=== PATIENT | female | born 1980 | race Caucasian/White ===

== ENCOUNTER → 2021-10-05 | Outpatient (CLI) | payer OTHER ==
--- NOTE | 2021-10-06 07:37 | MM ---
Reason for Exam: Screening (asymptomatic). Baseline mammogram. Patient History: Menarche at age 10. Patient has no children. Paternal grandmother had breast cancer at or over age 50. Last menstrual period: 07/07/2021 Risk Values: Saba 5 year model risk: 0.8%. NCI Lifetime model risk: 10.8%. Prior Study Comparison: Patient's first Mammogram. Tissue Density: The breast tissue is heterogeneously dense. This may lower the sensitivity of mammography. Findings: Analyzed By CAD. There is no suspicious group of microcalcifications, distortion, or suspicious mass in either breast. Overall Assessment: Negative, BI-RAD 1 Management: Screening Mammogram of both breasts in 1 year. A clinical breast exam by your physician is recommended on an annual basis and results should be correlated with mammographic findings. Electronically signed and approved by: Ronald Menard M.D.
== END | disposition home or self-care (01) ==
LOC: RADMAMWWP 09:28
PROVIDERS: ATTEND Obstetrics & Gynecology Obstetrics
DX: Z12.31 Encounter for screening mammogram for malignant neoplasm of breast (principal); Z80.3 Family history of malignant neoplasm of breast
CPT/HCPCS: 77063; 77067

== ENCOUNTER → 2022-10-10 | Outpatient (CLI) | payer OTHER ==
--- NOTE | 2022-10-11 10:45 | MM ---
Reason for Exam: Screening (asymptomatic). Last screening mammogram was performed 12 month(s) ago. Indicated Problems: Pain of the left side for 5 Month(s). Patient History: Menarche at age 10. Patient has no children. Paternal grandmother had breast cancer at or over age 50. Last menstrual period: 09/22/2022 Risk Values: Saba 5 year model risk: 0.9%. NCI Lifetime model risk: 10.7%. Prior Study Comparison: 10/05/2021 Bilateral MG 3D screening mammo w/cad, [facility]. Tissue Density: The breast tissue is heterogeneously dense. This may lower the sensitivity of mammography. Findings: Analyzed By CAD. There is no suspicious group of microcalcifications or new suspicious mass in either breast. Overall Assessment: Negative, BI-RAD 1 Management: Screening Mammogram of both breasts in 1 year. . Patient should continue monthly self-breast exams. A clinical breast exam by your physician is recommended on an annual basis. This exam should not preclude additional follow-up of suspicious palpable abnormalities. Note on Saba scores and lifetime risk: 1. A Saba score greater than 3% is considered moderate risk. If this is the case, consider specialist referral to assess eligibility for a risk reducing agent. 2. If overall lifetime risk for the development of breast cancer is 20% or higher, the patient may qualify for future screening with alternating mammogram and breast MRI. Electronically signed and approved by: Richard Abdalla M.D. Radiologis
== END | disposition home or self-care (01) ==
LOC: RADMAMWWP 08:27
PROVIDERS: ATTEND Obstetrics & Gynecology Obstetrics
DX: Z12.31 Encounter for screening mammogram for malignant neoplasm of breast (principal); Z80.3 Family history of malignant neoplasm of breast
CPT/HCPCS: 77063; 77067

== ENCOUNTER 2023-05-21 08:12 | Observation (INO) | payer OTHER ==
[~2023-05-21 08:12] MED LIST: HEPARIN SODIUM,PORCINE (1 ML) 2,500 UNIT in SODIUM CHLORIDE 0.9% 250 ML IRRIGATION PRN; HEPARIN SODIUM,PORCINE 10,000 UNIT in SODIUM CHLORIDE 0.9% 1,000 ML IRRIGATION PRN
--- NOTE | 2023-05-21 08:29 | ED ---
General Adult HPI - General Chief complaint: Chest Pain Stated complaint: chest pain Time Seen by Provider: 05/21/23 08:18 Source: patient, EMS, RN notes reviewed Mode of arrival: EMS Limitations: no limitations - History of Present Illness Initial comments: Patient is a pleasant 43-year-old female present to the emergency department with concerns with chest discomfort. Onset of symptoms was prior to arrival. Patient felt nauseated and did vomit. Patient then developed chest discomfort. Discomfort feels like heaviness or pressure and is somewhat severe. Patient has had 2 syncopal episodes. Patient does have some dyspnea. Nausea has resolved with medication by EMS. No diaphoresis. No cardiac history or history of similar symptoms previously - Related Data Home Medications Medication Instructions Recorded Confirmed Ibuprofen [Motrin Ib] 400 mg PO TID 01/17/18 01/17/18 Previous Rx's Medication Instructions Recorded Cyclobenzaprine [Flexeril] 1 - 2 tab PO TID #20 tablet 01/17/18 Ibuprofen [Motrin] 600 mg PO Q6HR PRN #40 day 01/17/18 predniSONE 50 mg PO DAILY #5 tab 01/17/18 Allergies Allergy/AdvReac Type Severity Reaction Status Date / Time No Known Allergies Allergy Verified 05/21/23 08:22 Review of Systems ROS Statement: Those systems with pertinent positive or pertinent negative responses have been documented in the HPI. ROS Other: All systems not noted in ROS Statement are negative. Constitutional: Denies: fever Eyes: Denies: eye pain ENT: Denies: ear pain Respiratory: Reports: as per HPI Cardiovascular: Reports: as per HPI, chest pain Endocrine: Denies: fatigue Gastrointestinal: Reports: nausea, vomiting. Denies: abdominal pain Genitourinary: Denies: dysuria Musculoskeletal: Denies: back pain Past Medical History Past Medical History: No Reported History History of Any Multi-Drug Resistant Organisms: None Reported Past Surgical History: Adenoidectomy Additional Past Surgical History / Comment(s): Ear surgery. Past Psychological History: No Psychological Hx Reported Smoking Status: Never smoker Past Alcohol Use History: None Reported Past Drug Use History: Marijuana General Exam Limitations: no limitations General appearance: alert, in no apparent distress Head exam: Present: normocephalic Eye exam: Present: normal appearance, PERRL, EOMI ENT exam: Present: other (Right lip abrasion) Neck exam: Present: normal inspection. Absent: tenderness Respiratory exam: Present: normal lung sounds bilaterally Cardiovascular Exam: Present: regular rate, normal rhythm, normal heart sounds Expanded Peripheral pulses: 2+: Radial (R), Radial (L), Posterior Tibialis (R), Posterior Tibialis (L) GI/Abdominal exam: Present: soft. Absent: tenderness Extremities exam: Present: normal inspection. Absent: pedal edema, calf tenderness Neurological exam: Present: alert, oriented X3, CN II-XII intact. Absent: motor sensory deficit Expanded Neurological exam: Present: protecting the airway Speech: Present: fluid speech Cranial nerves: EOM's Intact: Normal Motor strength exam: RUE: 5, LUE: 5, RLE: 5, LLE: 5 Eye Response: (4) open spontaneously Motor Response: (6) obeys commands Verbal Response: (5) oriented Psychiatric exam: Present: normal affect, normal mood Skin exam: Present: abrasion (Right lip) Course Vital Signs 05/21/23 05/21/23 05/21/23 08:15 08:47 09:10 Temperature 99.4 F Pulse Rate 68 71 77 Respiratory 18 17 17 Rate Blood Pressure 110/73 109/73 111/77 O2 Sat by Pulse 98 97 98 Oximetry EKG Findings - EKG Results: EKG: interpreted by ERMD, sinus rhythm, normal axis, normal QRS, normal ST/T Medical Decision Making - Medical Decision Making Was pt. sent in by a medical professional or institution (, PA, TRIM LINE WORKER, urgent care, hospital, or shelter...) When possible be specific @ -Patient was sent from work Did you speak to anyone other than the patient for history (EMS, parent, family, police, friend...)? What history was obtained from this source @ -No Did you review nursing and triage notes (agree or disagree)? Why? @ -I reviewed and agree with nursing and triage notes Were old charts reviewed (outside hosp., previous admission, EMS record, old EKG, old radiological studies, urgent care reports/EKG's, shelter records)? Report findings @ -No old charts were reviewed Differential Diagnosis (chest pain, altered mental status, abdominal pain women, abdominal pain men, vaginal bleeding, weakness, fever, dyspnea, syncope, headache, dizziness, GI bleed, back pain, seizure, CVA, palpatations, mental health, musculoskeletal)? @ -Differential Chest Pain: Stable Angina, Unstable Angina, STEMI, NSTEMI Aortic Dissection, Pneumothorax, Musculoskeletal, Esophageal Spasm GERD, Cholecystitis, Pancreatitis, Zoster, this is not meant to be an all-inclusive list. EKG interpreted by me (3pts min.). @ -As above X-rays interpreted by me (1pt min.). @ -None done CT interpreted by me (1pt min.). @ -CT chest does not reveal acute abnormality U/S interpreted by me (1pt. min.). @ -None done What testing was considered but not performed or refused? (CT, X-rays, U/S, labs)? Why? @ -None What meds were considered but not given or refused? Why? @ -None Did you discuss the management of the patient with other professionals (professionals i.e. , PA, TRIM LINE WORKER, lab, RT, psych nurse, social professionals, beet topper, teacher, tactical debriefer officer, returned case inspector)? Give summary @ -Case discussed with Dr. Oro who will admit covering hospital call Was smoking cessation discussed for >3mins.? @ -No Was critical care preformed (if so, how long)? @ -No Were there social determinants of health that impacted care today? How? (Homele ssness, low income, unemployed, alcoholism, drug addiction, transportation, low edu. Level, literacy, decrease access to med. care, fdc, rehab)? @ -No Was there de-escalation of care discussed even if they declined (Discuss DNR or withdrawal of care, Hospice)? DNR status @ -No What co-morbidities impacted this encounter? (DM, HTN, Smoking, COPD, CAD, Cancer, CVA, ARF, Chemo, Hep., AIDS, mental health diagnosis, sleep apnea, morbid obesity)? @ -None Was patient admitted / discharged? Hospital course, mention meds given and route, prescriptions, significant lab abnormalities, going to OR and other pertinent info. @ -Patient reevaluated and feeling much better. Patient and family updated on results and plan. Patient presents with chest pain and 2 syncopal episodes. Patient will be kept for admission and cardiology. Admission orders written Undiagnosed new problem with uncertain prognosis? @ -No Drug Therapy requiring intensive monitoring for toxicity (Heparin, Nitro, Insulin, Cardizem)? @ -No Were any procedures done? @ -No Diagnosis/symptom? @ -Chest pain, syncope Acute, or Chronic, or Acute on Chronic? @ -Acute, acute Uncomplicated (without systemic symptoms) or Complicated (systemic symptoms)? @ -Pain is complicated with syncope Side effects of treatment? @ -No Exacerbation, Progression, or Severe Exacerbation? @ -No Poses a threat to life or bodily function? How? (Chest pain, USA, NC, pneumonia, PE, COPD, DKA, ARF, appy, cholecystitis, CVA, Diverticulitis, Homicidal, Suicidal, threat to staff... and all critical care pts) @ -No - Lab Data Result diagrams: 05/21/23 08:31 05/21/23 08:31 Lab Results 05/21/23 05/21/23 05/21/23 Range/Units 08:31 08:31 08:31 WBC 4.2 (3.8-10.6) k/uL RBC 4.37 (3.80-5.40) m/uL Hgb 14.0 (11.4-16.0) gm/dL Hct 41.9 (34.0-46.0) % MCV 95.9 (80.0-100.0) fL MCH 31.9 (25.0-35.0) pg MCHC 33.3 (31.0-37.0) g/dL RDW 11.9 (11.5-15.5) % Plt Count 260 (150-450) k/uL MPV 7.4 Neutrophils % 55 % Lymphocytes % 29 % Monocytes % 10 % Eosinophils % 3 % Basophils % 1 % Neutrophils # 2.3 (1.3-7.7) k/uL Lymphocytes # 1.2 (1.0-4.8) k/uL Monocytes # 0.4 (0-1.0) k/uL Eosinophils # 0.1 (0-0.7) k/uL Basophils # 0.0 (0-0.2) k/uL PT 10.6 (10.0-12.5) sec INR 1.0 (<1.2) APTT 27.9 (22.0-30.0) sec Sodium 139 (137-145) mmol/L Potassium 3.7 (3.5-5.1) mmol/L Chloride 108 H (98-107) mmol/L Carbon Dioxide 20 L (22-30) mmol/L Anion Gap 11 mmol/L BUN 19 H (7-17) mg/dL Creatinine 0.69 (0.52-1.04) mg/dL Est GFR (CKD-EPI)AfAm >90 (>60 ml/min/1.73 sqM) Est GFR (CKD-EPI)NonAf >90 (>60 ml/min/1.73 sqM) Glucose 104 H (74-99) mg/dL Calcium 9.2 (8.4-10.2) mg/dL Magnesium 1.9 (1.6-2.3) mg/dL Total Bilirubin 0.6 (0.2-1.3) mg/dL AST 28 (14-36) U/L ALT 41 H (4-34) U/L Alkaline Phosphatase 61 (38-126) U/L Troponin I (0.000-0.034) ng/mL Total Protein 6.9 (6.3-8.2) g/dL Albumin 4.1 (3.5-5.0) g/dL 05/21/23 Range/Units 08:31 WBC (3.8-10.6) k/uL RBC (3.80-5.40) m/uL Hgb (11.4-16.0) gm/dL Hct (34.0-46.0) % MCV (80.0-100.0) fL MCH (25.0-35.0) pg MCHC (31.0-37.0) g/dL RDW (11.5-15.5) % Plt Count (150-450) k/uL MPV Neutrophils % % Lymphocytes % % Monocytes % % Eosinophils % % Basophils % % Neutrophils # (1.3-7.7) k/uL Lymphocytes # (1.0-4.8) k/uL Monocytes # (0-1.0) k/uL Eosinophils # (0-0.7) k/uL Basophils # (0-0.2) k/uL PT (10.0-12.5) sec INR (<1.2) APTT (22.0-30.0) sec Sodium (137-145) mmol/L Potassium (3.5-5.1) mmol/L Chloride (98-107) mmol/L Carbon Dioxide (22-30) mmol/L Anion Gap mmol/L BUN (7-17) mg/dL Creatinine (0.52-1.04) mg/dL Est GFR (CKD-EPI)AfAm (>60 ml/min/1.73 sqM) Est GFR (CKD-EPI)NonAf (>60 ml/min/1.73 sqM) Glucose (74-99) mg/dL Calcium (8.4-10.2) mg/dL Magnesium (1.6-2.3) mg/dL Total Bilirubin (0.2-1.3) mg/dL AST (14-36) U/L ALT (4-34) U/L Alkaline Phosphatase (38-126) U/L Troponin I <0.012 (0.000-0.034) ng/mL Total Protein (6.3-8.2) g/dL Albumin (3.5-5.0) g/dL Disposition Clinical Impression: Chest pain Disposition: ADMITTED IP TO THIS HOSP Is patient prescribed a controlled substance at d/c from ED?: No Referrals: None,Stated [Primary Care Provider] - 1-2 days Time of Disposition: 10:01
[2023-05-21] MEDS: ASPIRIN 81 MG PO STA (08:48)
[2023-05-21 08:49] LABS: Partial Thromboplastin Time 27.9 sec (22.0-30.0); Prothrombin Time 10.6 sec (10.0-12.5)
[2023-05-21] MEDS: NITROGLYCERIN SL TABS 0.4 MG TAB SUBLINGUAL STA ×3 (08:49→09:12)
[2023-05-21 08:53] LABS: Basophils % (A) 1 %; Eosinophils # (A) 0.1 k/uL (0-0.7); Eosinophils % (A) 3 %; HCT 41.9 % (34.0-46.0); Lymphocytes # (A) 1.2 k/uL (1.0-4.8); Lymphocytes % (A) 29 %; MCH 31.9 pg (25.0-35.0); MCHC 33.3 g/dL (31.0-37.0); MCV 95.9 fL (80.0-100.0); Mean Platelet Volume 7.4; Monocytes # (A) 0.4 k/uL (0-1.0); Monocytes % (A) 10 %; Neutrophils # (A) 2.3 k/uL (1.3-7.7); Neutrophils % (A) 55 %; Platelet Count 260 k/uL (150-450); RBC 4.37 m/uL (3.80-5.40); RDW 11.9 % (11.5-15.5); WBC 4.2 k/uL (3.8-10.6)
[2023-05-21 09:00] LABS: ALT 41 U/L (4-34); AST 28 U/L (14-36); African American GFR (CKD) >90 (>60 ml/min/1.73 sqM); Albumin 4.1 g/dL (3.5-5.0); Alkaline Phosphatase 61 U/L (38-126); Anion Gap 11 mmol/L; Blood Urea Nitrogen 19 mg/dL (7-17); Calcium 9.2 mg/dL (8.4-10.2); Carbon Dioxide 20 mmol/L (22-30); Chloride 108 mmol/L (98-107); Glucose 104 mg/dL (74-99); Magnesium 1.9 mg/dL (1.6-2.3); Non-African American GFR(CKD) >90 (>60 ml/min/1.73 sqM); Potassium 3.7 mmol/L (3.5-5.1); Sodium 139 mmol/L (137-145); Total Bilirubin 0.6 mg/dL (0.2-1.3); Total Protein 6.9 g/dL (6.3-8.2)
--- NOTE | 2023-05-21 09:34 | CT ---
CTA CHEST EXAMINATION TYPE: CT angio chest DATE OF EXAM: 05/21/2023 INDICATION: Chest pain, syncope, pt denies cardiac hx CT DLP: 486.6 mGycm, Automated exposure control for dose reduction was used. CONTRAST: Patient injected with 100 mL of Isovue 370. COMPARISON: None TECHNIQUE: CT of the chest is performed on a spiral scan at 2 mm thick sections. Study is performed with intravenous contrast timed for evaluation for pulmonary embolism. This will limit additional po rtions of the evaluation. 3-D MIP images reconstructed by the technologist are reviewed on the compu ter in the coronal and sagittal planes. FINDINGS: No persistent filling defects are evident to suggest an acute pulmonary embolism. No mediastinal or hilar adenopathy enlarged by CT criteria is evident. The ascending aorta diameter at the level of the main pulmonary artery is 2.9 cm. The main pulmonary artery diameter at the bifurcation is 2.5 cm. Lung windows are clear. Limited CT sections were through the upper abdomen. Upper abdomen appears unremarkable. IMPRESSION: 1. No acute pulmonary embolism. 2. No acute pulmonary process.
[2023-05-21] MEDS ORDERED: NITROGLYCERIN SL TABS 0.4 MG TAB SUBLINGUAL PRN ×2 (10:01→11:28)
[2023-05-21] MEDS ORDERED: ALPRAZolam 0.25 MG TAB PO PRN (11:28)
[2023-05-21] MEDS ORDERED: ALPRAZolam 0.5 MG TAB PO PRN (11:28)
[2023-05-21] MEDS ORDERED: HEPARIN SODIUM 1,000 UN/ML (10ML VL) IV PRN (11:30)
[2023-05-21] MEDS: HEPARIN SODIUM 1,000 UN/ML (10ML VL) IV ONE (11:54)
[2023-05-21] MEDS: HEPARIN SOD,PORK IN 0.45% NACL 25,000 UNIT in 0.45% NACL 1 250ML.BAG IV SCH (11:55)
[2023-05-21] MEDS: SODIUM CHLORIDE 0.9% 1,000 ML IV SCH (11:56)
[2023-05-21] MEDS: NITROGLYCERIN OINT 1 INCH/GM PACKET TOPICAL SCH (11:56)
[2023-05-21] MEDS: ATORVASTATIN 80 MG TAB PO STA (11:56)
[2023-05-21] MEDS: ASPIRIN 325 MG TAB PO STA (12:00)
[2023-05-21 12:34] LABS: Glucose,Whole Blood 149 mg/dL (70-110)
[2023-05-21 12:35] LABS: Prothrombin Time 10.6 sec (10.0-12.5)
[2023-05-21 12:47] LABS: Basophils % (A) 0 %; Eosinophils % (A) 0 %; HGB 14.3 gm/dL (11.4-16.0); Lymphocytes % (A) 16 %; MCH 32.2 pg (25.0-35.0); MCHC 33.2 g/dL (31.0-37.0); Mean Platelet Volume 7.3; Monocytes # (A) 0.3 k/uL (0-1.0); Monocytes % (A) 5 %; Neutrophils # (A) 4.9 k/uL (1.3-7.7); Neutrophils % (A) 77 %; Platelet Count 277 k/uL (150-450); RBC 4.43 m/uL (3.80-5.40); RDW 11.9 % (11.5-15.5); WBC 6.4 k/uL (3.8-10.6)
--- NOTE | 2023-05-21 13:10 | P.HPIM ---
History of Present Illness H&P Date: 05/21/23 43-year-old female with no significant PMH presents to the ED. She was at work earlier and started to become nauseated and diaphoretic. She had one episode of NBNB vomiting. Shortly after she felt lightheaded and had a syncopal episode. Once regained consciousness she had another syncopal episode. After regaining consciousness for a second she started experiencing midsternal chest pain, described as less than sitting on her chest with radiation to the left arm along with numbness and tingling. She is a previous smoker. She reports her sister had a stent placed at age 53. In the ED, she underwent extensive evaluation. BP 110/73, HR 68, RR 18, T 99.4F, 98% on RA. CBC unremarkable. Coagulation panel unremarkable. CMP showed chloride 108, bicarb 20, BUN 19, glucose 104, ALT 41. Magnesium 1.9. Troponin less than 0.0123. EKG showed sinus rhythm with nonspecific T-wave changes. CTA chest negative for PE. Cardiology consulted, started on heparin drip with plans of cardiac catheterization. General: non toxic, no distress, appears at stated age Derm: warm, dry Head: atraumatic, normocephalic, symmetric Eyes: EOMI, no lid lag, anicteric sclera Mouth: no lip lesion, mucus membranes moist Cardiovascular: S1S2 reg, no murmur Lungs: CTA bilateral, no rhonchi, no rales , no accessory muscle use Ext: no gross muscle atrophy, no edema, no contractures Neuro: no focal neuro deficits Psych: Alert, oriented, appropriate affect Based on my assessment of this patient, this patient meets a high complexity level of care. Patient has an acute diagnosis of unstable angina that poses a threat to life or bodily function. Unstable angina: Troponins negative. Symptoms concerning for ACS. Plans for cardiac cath. Obtain Echo. Heparin drip at 10.8 units/kg/hr. ASA 81 mg PO QD. Telemetry monitoring. Cardiology on board. Previous smoker Family history of CAD Obesity: Structured weight loss program. CODE STATUS: FULL CODE DVT Prophylaxis: Heparin drip GI Prophylaxis: Designated medical POA if patient is not able to make medical decisions for themselves: . I have reviewed the following customer care consultant notes: ED note. I have reviewed the results of the following tests: As above. I have ordered the following tests: As above. I have discussed the care of this patient with the following independent historian: . I have independently interpreted the following test below: EKG. I have discussed the management of this patient with the following physician: ED physician. Past Medical History Past Medical History: No Reported History History of Any Multi-Drug Resistant Organisms: None Reported Past Surgical History: Adenoidectomy Additional Past Surgical History / Comment(s): Ear surgery. Past Psychological History: No Psychological Hx Reported Smoking Status: Never smoker Past Alcohol Use History: None Reported Past Drug Use History: Marijuana Medications and Allergies Home Medications Medication Instructions Recorded Confirmed Type Azithromycin [Zithromax Z Pack] See Taper PO DAILY 05/21/23 05/21/23 History Allergies Allergy/AdvReac Type Severity Reaction Status Date / Time No Known Allergies Allergy Verified 05/21/23 10:38 Physical Exam Vitals: Vital Signs Temp Pulse Resp BP Pulse Ox 05/21/23 12:00 98.2 F 81 18 104/72 98 05/21/23 10:28 65 17 107/73 97 05/21/23 09:10 77 17 111/77 98 05/21/23 08:47 71 17 109/73 97 05/21/23 08:15 99.4 F 68 18 110/73 98 Intake and Output 05/20/23 05/21/23 05/21/23 22:59 06:59 14:59 Other: Weight 92.533 kg Results CBC & Chem 7: 05/21/23 11:54 05/21/23 08:31 Labs: Abnormal Lab Results - Last 24 Hours (Table) 05/21/23 05/21/23 Range/Units 08:31 12:32 Chloride 108 H (98-107) mmol/L Carbon Dioxide 20 L (22-30) mmol/L BUN 19 H (7-17) mg/dL Glucose 104 H (74-99) mg/dL POC Glucose (mg/dL) 149 H (70-110) mg/dL ALT 41 H (4-34) U/L
--- NOTE | 2023-05-21 14:32 | P.CRDCN ---
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 Patient states that she developed vomiting at work and then was feeling lightheaded and nauseated. She states she ended up falling down twice could not catch her breath and developed chest pain that was severe with pain going into her left arm. She did not feel right in general. She was given 2 nitroglycerin and she had improvement of the pain within a couple minutes. Patient denies having any fever or chills. No cough. She does have pain with deep breathing. She describes it as someone sitting on her chest. All she states she has tightness in her chest now. Symptoms started this morning while at work. Patient quit smoking tobacco in 2016. She does use marijuana. No alcohol use. She has a strong family history of coronary artery disease and diabetes. Chest pain is a #5/10. Discussed option of cardiac catheterization and patient is agreeable to move forward with this today. EKG sinus rhythm with nonspecific ST changes. CTA of the chest revealed no acute pulmonary embolism. No acute pulmonary process. CBC, INR normal. Sodium 139, potassium 3.7, chloride 108, CO2 20, BUN 19 creatinine 0.69. Blood sugar 104. Troponins negative x 3. ALT 41 otherwise liver function tests are normal. Magnesium 1.9. Home cardiac medications: None Review Of Systems: At the time of my exam: CONSTITUTIONAL: Denies fever or chills. HEENT: Denies blurred vision, vision changes, or eye pain. Denies hemoptysis CARDIOVASCULAR: Reports chest pain. Denies orthopnea. Denies PND. Denies palpitations RESPIRATORY: Denies shortness of breath. GASTROINTESTINAL: Denies abdominal pain. Denies nausea or vomiting. HEMATOLOGIC: Denies bleeding disorders. GENITOURINARY: Denies any blood in urine. SKIN: Denies pruitis. Denies rash. Physical examination: Gen: This is a 43-year-old female in no acute distress. VS: reviewed blood pressure 107/73, heart rate 65, pulse ox 97% on room air. HEENT: Head is atraumatic, normocephalic. Pupils equal, round. Sclerae is anicteric. NECK: Supple. No JVD. LUNGS: Clear to auscultation. No wheezes or rhonchi. No intercostal retractions. HEART: Regular rate and rhythm. No murmur. ABDOMEN: Soft No tenderness. EXTREMITIES: No pedal edema. No calf tenderness. NEUROLOGICAL: Patient is awake, alert and oriented x3. Assessment: Chest pain, ruled out acute coronary syndrome Plan: Patient has been started on aspirin 81 mg daily Start patient on heparin drip and nitro ointment 1 inch every 6 hours Schedule patient for cardiac catheterization today with Dr. Wakefield Obtain 2-D echocardiogram and Doppler study to assess cardiac structure and function Further recommendations to follow based upon clinical course Thank you kindly for this consultation. Nurse practitioner note has been reviewed, I agree with documented findings and plan of care. Patient was seen and examined. Past Medical History Past Medical History: No Reported History History of Any Multi-Drug Resistant Organisms: None Reported Past Surgical History: Adenoidectomy Additional Past Surgical History / Comment(s): Ear surgery. Past Psychological History: No Psychological Hx Reported Smoking Status: Never smoker Past Alcohol Use History: None Reported Past Drug Use History: Marijuana Medications and Allergies Home Medications Medication Instructions Recorded Confirmed Type Azithromycin [Zithromax Z Pack] See Taper PO DAILY 05/21/23 05/21/23 History Allergies Allergy/AdvReac Type Severity Reaction Status Date / Time No Known Allergies Allergy Verified 05/21/23 10:38 Physical Exam Vitals: Vital Signs Temp Pulse Resp BP Pulse Ox 05/21/23 10:28 65 17 107/73 97 05/21/23 09:10 77 17 111/77 98 05/21/23 08:47 71 17 109/73 97 05/21/23 08:15 99.4 F 68 18 110/73 98 Intake and Output 05/20/23 05/21/23 05/21/23 22:59 06:59 14:59 Other: Weight 92.533 kg Results 05/21/23 11:54 05/21/23 08:31 Cardiac Enzymes 05/21/23 05/21/23 05/21/23 Range/Units 08:31 08:31 10:15 AST 28 (14-36) U/L Troponin I <0.012 <0.012 (0.000-0.034) ng/mL Coagulation 05/21/23 Range/Units 08:31 PT 10.6 (10.0-12.5) sec APTT 27.9 (22.0-30.0) sec CBC 05/21/23 Range/Units 08:31 WBC 4.2 (3.8-10.6) k/uL RBC 4.37 (3.80-5.40) m/uL Hgb 14.0 (11.4-16.0) gm/dL Hct 41.9 (34.0-46.0) % Plt Count 260 (150-450) k/uL Comprehensive Metabolic Panel 05/21/23 Range/Units 08:31 Sodium 139 (137-145) mmol/L Potassium 3.7 (3.5-5.1) mmol/L Chloride 108 H (98-107) mmol/L Carbon Dioxide 20 L (22-30) mmol/L BUN 19 H (7-17) mg/dL Creatinine 0.69 (0.52-1.04) mg/dL Glucose 104 H (74-99) mg/dL Calcium 9.2 (8.4-10.2) mg/dL AST 28 (14-36) U/L ALT 41 H (4-34) U/L Alkaline Phosphatase 61 (38-126) U/L Total Protein 6.9 (6.3-8.2) g/dL Albumin 4.1 (3.5-5.0) g/dL Current Medications Generic Name Dose Route Start Last Admin Trade Name Freq PRN Reason Stop Dose Admin Aspirin 325 mg 05/22/23 09:00 Aspirin 325 Mg Tab PO DAILY MILY Nitroglycerin 0.4 mg 05/21/23 10:01 Nitroglycerin Sl Tabs 0.4 Mg Tab SUBLINGUAL Q5M PRN Chest Pain Nitroglycerin 1 inch 05/21/23 12:00 Nitroglycerin Oint 1 Inch/Gm Packet TOPICAL Q6HR MILY Intake and Output 05/20/23 05/21/23 05/21/23 22:59 06:59 14:59 Other: Weight 92.533 kg Patient Weight 05/22/23 06:59 Weight 92.533 kg 05/21/23 08:31 05/21/23 08:31
[2023-05-21] MEDS: SODIUM CHLORIDE 0.9% 1,000 ML IV ONE (15:23)
[2023-05-21] MEDS ORDERED: VERAPAMIL 2.5 MG/ML 2 ML AMP ONE (15:23)
[2023-05-21] MEDS ORDERED: LIDOCAINE 1% INJ 10MG/ML (20 ML MDV) ONE (15:23)
[2023-05-21] MEDS ORDERED: fentaNYL (PF) 50 MCG/ML 2 ML AMP ONE (15:35)
[2023-05-21] MEDS: fentaNYL (PF) 50 MCG/1 ML VIAL IVP ONE (15:44)
[2023-05-21] MEDS: MIDAZOLAM 2 MG/2 ML VIAL IVP ONE (15:44)
[2023-05-21] MEDS: LIDOCAINE 1% INJ 10MG/ML (20 ML MDV) SQ ONE (15:45)
[2023-05-21] MEDS: VERAPAMIL SYRINGE (5 MG/10 ML) INTRAARTER ONE (15:46)
[2023-05-21] MEDS ORDERED: HEPARIN SODIUM 1,000 UN/ML (10ML VL) ONE (15:49)
[2023-05-21] MEDS: HEPARIN SODIUM 1,000 UN/ML (10ML VL) IVP ONE (15:51)
[2023-05-21] MEDS: IOPAMIDOL-370 100ML BTL INJ ONE (15:59)
--- NOTE | 2023-05-21 16:04 | CA ---
Transthoracic Echo Report Name: Julia Sheth Age: 43 Gender: F : 1980 Exam Date: 05/21/2023 14:32 Exam Location: [facility] Ht (in): 63 Wt (lb): 204 Ordering Physician: Ernestine Quispe MD Attending/Referring Phys: Grocery Clerk Tasia Dixon RCS Procedure CPT: Indications: CP Cardiac Hx: Technical Quality: Technically difficult study Contrast 1: Definity Total Dose (mL): 2 Contrast 2: Total Dose (mL): MEASUREMENTS (Male / Female) Normal Values 2D ECHO LV Diastolic Diameter PLAX 5.8 cm 4.2 - 5.9 / 3.9 - 5.3 cm LV Systolic Diameter PLAX 4.0 cm IVS Diastolic Thickness 0.5 cm 0.6 - 1.0 / 0.6 - 0.9 cm LVPW Diastolic Thickness 0.6 cm 0.6 - 1.0 / 0.6 - 0.9 cm LV Relative Wall Thickness 0.2 RV Internal Dim ED PLAX 2.5 cm LVOT Diameter 2.3 cm LV Diastolic Volume MOD BP 105.6 cm??? 67 - 155 / 56 - 104 cm??? LV Systolic Volume MOD BP 35.8 cm??? 22 - 58 / 19 - 49 cm??? LV Ejection Fraction MOD BP 66.1 % >= 55 % LV Cardiac Index MOD BP 2224.8 cm???/min???m??? LV Diastolic Volume MOD 4C 111.7 cm??? LV Systolic Volume MOD 4C 38.5 cm??? LV Ejection Fraction MOD 4C 65.6 % LV Cardiac Index MOD 4C 2332.8 cm???/min???m??? LV Diastolic Length 4C 7.6 cm LV Systolic Length 4C 6.1 cm LV Diastolic Volume MOD 2C 95.2 cm??? LV Systolic Volume MOD 2C 33.2 cm??? LV Ejection Fraction MOD 2C 65.2 % LV Cardiac Index MOD 2C 1978.2 cm???/min???m??? LV Diastolic Length 2C 7.2 cm LV Systolic Length 2C 6.0 cm LA Volume 35.8 cm??? 18 - 58 / 22 - 52 cm??? LA Volume Index 17.3 cm???/m??? 16 - 28 cm???/m??? Ascending Aorta Diameter 3.1 cm DOPPLER AV Peak Velocity 141.6 cm/s AV Peak Gradient 8.0 mmHg AV Mean Velocity 96.8 cm/s AV Mean Gradient 4.3 mmHg AV Velocity Time Integral 25.9 cm LVOT Peak Velocity 108.2 cm/s LVOT Peak Gradient 4.7 mmHg LVOT Velocity Time Integral 21.4 cm LVOT Stroke Volume 85.3 cm??? LVOT Stroke Volume Index 43.7 ml/m??? LVOT Cardiac Index 2717.7 cm???/min???m??? AV Area Cont Eq vti 3.3 cm??? AV Area Cont Eq pk 3.0 cm??? Mitral E Point Velocity 73.4 cm/s Mitral A Point Velocity 60.5 cm/s Mitral E to A Ratio 1.2 MV Deceleration Time 181.4 ms MV E' Velocity 7.0 cm/s Mitral E to MV E' Ratio 10.5 TR Peak Velocity 216.4 cm/s TR Peak Gradient 18.7 mmHg Right Atrial Pressure 5.0 mmHg Pulmonary Artery Systolic Pressu 23.7 mmHg Right Ventricular Systolic Press 23.7 mmHg PV Peak Velocity 94.9 cm/s PV Peak Gradient 3.6 mmHg FINDINGS Left Ventricle Left ventricular ejection fraction is estimated at 60-65 %. Moderately increased left ventricular diastolic diameter. Mildly increased left ventricular diastolic volume. Left ventricular wall thickness normal. No obvious regional wall motion abnormalities. Right Ventricle Normal right ventricular size and function. Right ventricular systolic pressure within normal limits. Right Atrium Normal right atrial size. Left Atrium Normal left atrial size. Mitral Valve Structurally normal mitral valve. No evidence for mitral valve prolapse. No mitral stenosis. No mitral regurgitation. Aortic Valve Trileaflet aortic valve. No aortic stenosis. No aortic regurgitation. Tricuspid Valve Structurally normal tricuspid valve. No tricuspid stenosis. Trace tricuspid regurgitation. Pulmonic Valve Structurally normal pulmonic valve. No pulmonic stenosis. No pulmonic regurgitation. Pericardium No pericardial effusion. Aorta Normal size aortic root and proximal ascending aorta. CONCLUSIONS Left ventricular ejection fraction 60-65% Normal left ventricular thickness No mitral regurgitation Trace tricuspid regurgitation No pericardial effusion Previewed by: Dr. Yoel Wakefield DO (Electronically Signed) Final Date: 21 May 2023 16:04
--- NOTE | 2023-05-21 16:08 | P.CARDCATH ---
Description of Procedure: PROCEDURES PERFORMED: Left heart catheterization, bilateral coronary angiography, ultrasound guided arterial access INDICATION: chest pain concerning for unstable angina CONSENT:I have discussed the risks, benefits and alternative therapies for the above-mentioned procedure and for both sedation/analgesia as well as necessary blood product administration, if indicated, as they pertain to this patient. The patient has indicated understanding and acceptance of the risks and procedures discussed. PROCEDURE: After the risks, benefits and alternatives of the above mentioned procedure explained in detail with the patient, informed consent was obtained. Patient was taken to the catheterization lab and prepped and draped in usual fashion. Ultrasound guidance was used to assess for arterial access. 1% lidocaine was used to anesthetize the right radial artery. A 6-Palauan sheath was placed in the right radial artery using modified Seldinger technique and ultrasound guidance. Left coronary angiography was performed with a 5-Palauan JL 3.5 catheter and right coronary angiography was performed with a 5-Palauan FR5 catheter in various views. A 5-Palauan FR5 catheter was inserted into the left ventricle and pressure measurements were obtained. The right radial sheath was removed and a TR band was placed with hemostasis achieved. The patient tolerated the procedure well. Patient was transported back to the post catheterization holding area in stable condition. Conscious Sedation: Patient was monitored under the direct supervision of myself for conscious sedation using Versed and fentanyl for a total duration of 10 minutes HEMODYNAMICS: aorta: 138/72 LV: 130/1, LVEDP 3 SELECTIVE CORONARY ARTERIOGRAPHY: LEFT MAIN: The left main is a large caliber vessel which bifurcates into the LAD and circumflex. There is no significant stenosis. LEFT ANTERIOR DESCENDING CORONARY ARTERY: LAD is a large caliber vessel which wraps around to the apex. There is no significant stenosis. LEFT CIRCUMFLEX CORONARY ARTERY: Left circumflex is a moderate caliber vessel without significant stenosis. RIGHT CORONARY ARTERY: The right coronary artery is a large caliber vessel which gives off a PDA and PLV branch and is the dominant vessel. There is no significant stenosis. FINAL IMPRESSION: 1. Normal coronary arteries as described above. 2. Low normal left sided filling pressures PLAN: 1. Aggressive risk factor modification per most recent ACC/AHA guidelines. 2. Follow-up in the office in 1-2 weeks.
[2023-05-21] MEDS: ACETAMINOPHEN TAB 325 MG TAB PO PRN (20:54)
[2023-05-22] MEDS ORDERED: HYDROcodone/APAP 5-325MG 1 EACH TAB PO PRN (05:51)
--- NOTE | 2023-05-22 05:54 | P.DS ---
Providers Date of admission: 05/21/23 10:02 Expected date of discharge: 05/22/23 Attending physician: Ernestine Quispe MD Consults: 05/21/23 10:02 Consult Physician Urgent Consulting Provider: Brock Pitts Consult Reason/Comments: cp w syncope Do you want consulting provider notified?: Yes Primary care physician: Stated None Hospital Course: 43-year-old female with no significant PMH presents to the ED. She was at work earlier and started to become nauseated and diaphoretic. She had one episode of NBNB vomiting. Shortly after she felt lightheaded and had a syncopal episode. Once regained consciousness she had another syncopal episode. After regaining consciousness for a second she started experiencing midsternal chest pain, described as less than sitting on her chest with radiation to the left arm along with numbness and tingling. She is a previous smoker. She reports her sister had a stent placed at age 53. In the ED, she underwent extensive evaluation. BP 110/73, HR 68, RR 18, T 99.4F, 98% on RA. CBC unremarkable. Coagulation panel unremarkable. CMP showed chloride 108, bicarb 20, BUN 19, glucose 104, ALT 41. Magnesium 1.9. Troponin less than 0.0123. EKG showed sinus rhythm with nonspecific T-wave changes. CTA chest negative for PE. Cardiology consulted, started on heparin drip with plans of cardiac catheterization. Cardiac cath negative for significant CAD. Echo EF 60-65% trace TR. 4/3 Patient was seen and examined. No chest pain. Complains of discomfort in the right wrist. CBC and BMP pending at the time of this note. Plans for discharge h ome today if CBC and BMP is benign. General: non toxic, no distress, appears at stated age Derm: warm, dry Head: atraumatic, normocephalic, symmetric Eyes: EOMI, no lid lag, anicteric sclera Mouth: no lip lesion, mucus membranes moist Cardiovascular: S1S2 reg, no murmur Lungs: CTA bilateral, no rhonchi, no rales , no accessory muscle use Ext: no gross muscle atrophy, no edema, no contractures Neuro: no focal neuro deficits Psych: Alert, oriented, appropriate affect Discharge Diagnosis: Chest pain Nausea Syncope Previous smoker Family history of CAD Obesity This complex discharge took 35 minutes to complete. Patient Condition at Discharge: Stable Plan - Discharge Summary New Discharge Prescriptions: New HYDROcodone/APAP 5-325MG [Sorrento 5-325] 1 each PO Q6HR PRN #12 tab PRN Reason: Pain Continue Azithromycin [Zithromax Z Pack] See Taper PO DAILY Discharge Medication List Azithromycin [Zithromax Z Pack] See Taper PO DAILY 05/21/23 [History] HYDROcodone/APAP 5-325MG [Sorrento 5-325] 1 each PO Q6HR PRN #12 tab 05/22/23 [Rx] Follow up Appointment(s)/Referral(s): None,Stated [Primary Care Provider] - 1-2 days Discharge Disposition: HOME SELF-CARE
[2023-05-22] MEDS: HYDROcodone/APAP 5-325MG 1 EACH TAB PO STA (06:00)
[2023-05-22 06:57] LABS: African American GFR (CKD) >90 (>60 ml/min/1.73 sqM); Anion Gap 5 mmol/L; Blood Urea Nitrogen 14 mg/dL (7-17); Calcium 8.5 mg/dL (8.4-10.2); Carbon Dioxide 21 mmol/L (22-30); Chloride 113 mmol/L (98-107); Glucose 89 mg/dL (74-99); Non-African American GFR(CKD) >90 (>60 ml/min/1.73 sqM); Potassium 3.8 mmol/L (3.5-5.1); Sodium 139 mmol/L (137-145)
[2023-05-22 06:59] LABS: Basophils % (A) 1 %; Eosinophils # (A) 0.1 k/uL (0-0.7); Eosinophils % (A) 2 %; HCT 43.1 % (34.0-46.0); HGB 13.5 gm/dL (11.4-16.0); Lymphocytes # (A) 1.3 k/uL (1.0-4.8); Lymphocytes % (A) 29 %; MCH 31.9 pg (25.0-35.0); MCHC 31.3 g/dL (31.0-37.0); MCV 101.8 fL (80.0-100.0); Mean Platelet Volume 7.2; Monocytes # (A) 0.3 k/uL (0-1.0); Monocytes % (A) 7 %; Neutrophils # (A) 2.6 k/uL (1.3-7.7); Neutrophils % (A) 58 %; Platelet Count 252 k/uL (150-450); RBC 4.23 m/uL (3.80-5.40); RDW 11.9 % (11.5-15.5); WBC 4.5 k/uL (3.8-10.6)
[2023-05-22 08:34] VITALS: BP 119/79; PULSE 70; RESP 15; TEMP 97.9
[2023-05-22] MEDS ORDERED: ASPIRIN 325 MG TAB PO SCH (09:00)
[2023-05-22] MEDS: ASPIRIN 81 MG PO SCH (09:13)
[2023-05-22 09:27] LABS: INR 1.01 sec (0.93-1.11); Prothrombin Time 10.9 sec (9.9-11.9)
--- NOTE | 2023-05-22 09:39 | P.PN ---
Subjective Progress Note Date: 05/22/23 Consult reason: sycope, chest pain History of present illness: History of present illness: This is a 43-year-old female with no previous cardiac history, does not follow with a search consultant. Patient states that she developed vomiting at work and then was feeling lightheaded and nauseated. She states she ended up falling down twice could not catch her breath and developed chest pain that was severe with pain going into her left arm. She did not feel right in general. She was given 2 nitroglycerin and she had improvement of the pain within a couple minutes. Patient denies having any fever or chills. No cough. She does have pain with deep breathing. She describes it as someone sitting on her chest. All she states she has tightness in her chest now. Symptoms started this morning while at work. Patient quit smoking tobacco in 2016. She does use marijuana. No alcohol use. She has a strong family history of coronary artery disease and diabetes. Chest pain is a #5/10. Discussed option of cardiac catheterization and patient is agreeable to move forward with this today. EKG sinus rhythm with nonspecific ST changes. CTA of the chest revealed no acute pulmonary embolism. No acute pulmonary process. CBC, INR normal. Sodium 139, potassium 3.7, chloride 108, CO2 20, BUN 19 creatinine 0.69. Blood sugar 104. Troponins negative x 3. ALT 41 otherwise liver function tests are normal. Magnesium 1.9. Home cardiac medications: None 4/3 Yesterday, patient underwent cardiac catheterization with Dr. Wakefield which revealed normal coronary arteries, low normal left-sided filling pressures. Results reviewed with the patient in detail. Patient did have improvement of her chest pain with nitroglycerin. Chest pain possibly related to coronary artery spasm or esophageal spasm. Blood pressure 107/66, heart rate 73, pulse ox 100% on room air. Echocardiogram reveals EF of 60 to 65%. Normal left ventricular thickness. No mitral regurgitation. Trace tricuspid regurgitation. No pericardial effusion. Physical examination: Gen: This is a 43-year-old female in no acute distress. VS: reviewed blood pressure 107/73, heart rate 65, pulse ox 97% on room air. HEENT: Head is atraumatic, normocephalic. Pupils equal, round. Sclerae is anicteric. NECK: Supple. No JVD. LUNGS: Clear to auscultation. No wheezes or rhonchi. No intercostal retractions. HEART: Regular rate and rhythm. No murmur. ABDOMEN: Soft No tenderness. EXTREMITIES: No pedal edema. No calf tenderness. NEUROLOGICAL: Patient is awake, alert and oriented x3. Assessment: Chest pain, ruled out acute coronary syndrome Family history of premature coronary artery disease Plan: Patient is cleared for discharge from cardiology May follow-up with Dr. Wakefield in 1 to 2 weeks. Nurse practitioner note has been reviewed, I agree with documented findings and plan of care. Patient was seen and examined. Objective - Vital Signs Vital signs: Vital Signs Temp 98 F 05/22/23 02:00 Pulse 73 05/22/23 02:00 Resp 16 05/22/23 02:00 BP 107/66 05/22/23 02:00 Pulse Ox 100 05/22/23 02:00 FiO2 Intake & Output 05/21/23 05/22/23 05/22/23 18:59 06:59 18:59 Intake Total 500 Balance 500 Weight 92.533 kg 92.533 kg Intake: IV 500 Other: Voiding Method Toilet # Voids 2 - Labs CBC & Chem 7: 05/22/23 06:00 05/22/23 06:00 Labs: Abnormal Lab Results - Last 24 Hours (Table) 05/21/23 05/21/23 05/22/23 Range/Units 08:31 12:32 06:00 MCV 101.8 H (80.0-100.0) fL Chloride 108 H (98-107) mmol/L Carbon Dioxide 20 L (22-30) mmol/L BUN 19 H (7-17) mg/dL Glucose 104 H (74-99) mg/dL POC Glucose (mg/dL) 149 H (70-110) mg/dL ALT 41 H (4-34) U/L 05/22/23 Range/Units 06:00 MCV (80.0-100.0) fL Chloride 113 H (98-107) mmol/L Carbon Dioxide 21 L (22-30) mmol/L BUN (7-17) mg/dL Glucose (74-99) mg/dL POC Glucose (mg/dL) (70-110) mg/dL ALT (4-34) U/L
[2023-05-22 11:51] LABS: Chol/HDL Ratio 4.78 Ratio; LDL Cholesterol,Calculated 124.5 mg/dL (0.0-131.0)
== END 2023-05-22 11:12 | disposition home or self-care (01) ==
LOC: EC 08:12 → 6NMEDSUR 10:02
PROVIDERS: ADMIT Family Medicine; ATTEND Family Medicine
DX: R07.89 Other chest pain (principal); R55 Syncope and collapse; R11.2 Nausea with vomiting, unspecified; M79.602 Pain in left arm; R20.2 Paresthesia of skin; R20.0 Anesthesia of skin; R61 Generalized hyperhidrosis; R06.00 Dyspnea, unspecified; I07.1 Rheumatic tricuspid insufficiency; E66.9 Obesity, unspecified; Z68.36 Body mass index [BMI] 36.0-36.9, adult; Z87.891 Personal history of nicotine dependence; Z82.49 Family history of ischemic heart disease and other diseases of the circulatory system; Z83.3 Family history of diabetes mellitus
CPT/HCPCS: 96376; 96365; 96366; 99285; 36415; 93005; 93306; 93458; 76937; 80061; 80053; 80048; 83735; 84484; 85025 ×2; 85610 ×2; 85730; 71275; G0378 ×2; C1769; C1894; J2250; J2001; Q9957; J1644 ×2; Q9967; J3010

== ENCOUNTER → 2023-11-19 | Outpatient (CLI) | payer OTHER ==
--- NOTE | 2023-11-20 11:28 | MM ---
Reason for Exam: Screening (asymptomatic). Last mammogram was performed 1 year(s) and 2 month(s) ago. Patient History: Menarche at age 10. Patient has no children. Paternal grandmother had breast cancer at or over age 50. Risk Values: Saba 5 year model risk: 0.9%. NCI Lifetime model risk: 10.6%. Prior Study Comparison: 10/05/2021 Bilateral MG 3D screening mammo w/cad, [facility]. 10/10/2022 Bilateral MG 3D screening mammo w/cad, [facility]. Tissue Density: There are scattered areas of fibroglandular density. Findings: Analyzed By CAD. Right breast: There is no suspicious group of microcalcifications or new suspicious mass. Left breast: There is no suspicious group of microcalcifications or new suspicious mass. Overall Assessment: Negative, BI-RAD 1 Management: Screening Mammogram of both breasts in [address] [facility] will attempt to contact patient to return for supplemental views and ultrasound if indicated. Patient should continue monthly self-breast exams. A clinical breast exam by your physician is recommended on an annual basis. This exam should not preclude additional follow-up of suspicious palpable abnormalities. Note on Saba scores and lifetime risk: 1. A Saba score greater than 3% is considered moderate risk. If this is the case, consider specialist referral to assess eligibility for a risk reducing agent. 2. If overall lifetime risk for the development of breast cancer is 20% or higher, the patient may qualify for future screening with alternating mammogram and breast MRI. [facility], , 11/20/2023 11:25 AM. Electronically signed and approved by: Jr Iyer DO
== END | disposition home or self-care (01) ==
LOC: RADMAMWWP 16:35
PROVIDERS: ATTEND Obstetrics & Gynecology Obstetrics
DX: Z12.31 Encounter for screening mammogram for malignant neoplasm of breast
CPT/HCPCS: 77063; 77067